=== PATIENT | female | born 1995 | race Caucasian/White ===

== ENCOUNTER 2018-12-19 08:58 | Emergency (ER) | payer SELFPAY ==
[~2018-12-19] VITALS: Wt 55.2 kg
[2018-12-19 09:06] VITALS: BP 132/77; PULSE 94; RESP 17
== END 2018-12-19 09:53 | disposition left against medical advice (07) ==
LOC: FTE 08:58
DX: Z53.21 Procedure and treatment not carried out due to patient leaving prior to being seen by health care provider (principal)